=== PATIENT | male | born 1965 | race Caucasian/White ===

== ENCOUNTER 2016-09-13 13:10 | Inpatient (IN) | payer OTHER ==
[2016-09-13] MEDS ORDERED: MENTHOL/PHENOL 1 EACH UD MM PRN (16:06)
[2016-09-13] MEDS ORDERED: P-EPHED 60MG/TRIPROLIDI 2.5MG TABLET PO PRN (16:06)
[2016-09-13] MEDS ORDERED: MAG HYDROX/AL HYDROX/SIMETH 30 ML UNIT-DOSE CUP PO PRN (16:06)
[2016-09-13] MEDS ORDERED: MAGNESIUM HYDROX 2400MG/30ML ORAL SUSPENSION 30 ML CUP PO PRN (16:06)
[2016-09-13] MEDS ORDERED: guaiFENesin/D-METHORPHAN HB 10 ML UNIT-DOSE CUPS PO PRN (16:06)
[2016-09-13] MEDS ORDERED: IBUPROFEN 400 MG TABLET (FP) PO PRN (16:06)
[2016-09-13] MEDS ORDERED: MAGNESIUM CITRATE 300 ML BOTTLE PO PRN (16:06)
--- NOTE | 2016-09-13 16:06 | HP ---
[facility] Rehab Assess/Revision - Admission History Admitted to Rehab from: [facility] Date of Admission to Rehab: 09/13/16 - Vital signs Vital Signs: Vital Signs Period Temp Pulse Resp BP Sys/Montilla Pulse Ox Last 24 Hr 99.3 F 101 16 136/76 - Findings Detox History & Physical reviewed: Yes Concur with findings: Yes
[2016-09-13] MEDS: traZODone HCL 50 MG TABLET (FP) PO SCH (21:47)
[2016-09-13] MEDS: THIAMINE HCL 100 MG TABLET (FP) PO SCH (21:47)
[2016-09-14] MEDS: PRENATAL VITAMINS W/ FOLIC ACID TABLET (FP) PO SCH (09:44)
[2016-09-14] MEDS: LOPERAMIDE HCL 2 MG CAPSULE PO PRN (09:44)
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
[2016-09-14] MEDS: traZODone HCL 50 MG TABLET (FP) PO SCH (21:34)
[2016-09-14] MEDS: THIAMINE HCL 100 MG TABLET (FP) PO SCH (21:35)
[2016-09-15] MEDS: PRENATAL VITAMINS W/ FOLIC ACID TABLET (FP) PO SCH (09:47)
[2016-09-15] MEDS ORDERED: SODIUM CHLORIDE NASAL SPRAY 44 ML BOTTLE NS PRN (12:48)
[2016-09-15] MEDS: COLLOIDAL OATMEAL 1 BAR EACH TP PRN (18:45)
[2016-09-15] MEDS: THIAMINE HCL 100 MG TABLET (FP) PO SCH (21:23)
[2016-09-15] MEDS: LOPERAMIDE HCL 2 MG CAPSULE PO PRN (21:24)
[2016-09-15] MEDS: traZODone HCL 50 MG TABLET (FP) PO SCH (21:24)
[2016-09-15] MEDS: METHYL SALICYLATE/MENTHOL OINT 30 GM TUBE TP SCH (21:24)
[2016-09-15] MEDS: IBUPROFEN 600 MG TABLET (FP) PO PRN (21:25)
[2016-09-16] MEDS: METHYL SALICYLATE/MENTHOL OINT 30 GM TUBE TP SCH ×2 (09:37→21:25)
[2016-09-16] MEDS: PRENATAL VITAMINS W/ FOLIC ACID TABLET (FP) PO SCH (09:37)
[2016-09-16] MEDS: IBUPROFEN 600 MG TABLET (FP) PO PRN ×2 (09:38→21:25)
[2016-09-16] MEDS: traZODone HCL 50 MG TABLET (FP) PO SCH (21:25)
[2016-09-16] MEDS: THIAMINE HCL 100 MG TABLET (FP) PO SCH (21:25)
[2016-09-16] MEDS: DOCUSATE SODIUM 100 MG CAPSULE (FP) PO PRN (21:52)
[2016-09-17] MEDS: PRENATAL VITAMINS W/ FOLIC ACID TABLET (FP) PO SCH (09:44)
[2016-09-17] MEDS: IBUPROFEN 600 MG TABLET (FP) PO PRN ×2 (09:45→21:32)
[2016-09-17] MEDS: METHYL SALICYLATE/MENTHOL OINT 30 GM TUBE TP SCH ×2 (13:03→21:30)
[2016-09-17] MEDS: traZODone HCL 50 MG TABLET (FP) PO SCH (21:30)
[2016-09-17] MEDS: THIAMINE HCL 100 MG TABLET (FP) PO SCH (21:30)
[2016-09-17] MEDS: DOCUSATE SODIUM 100 MG CAPSULE (FP) PO PRN (21:32)
[2016-09-18] MEDS: PRENATAL VITAMINS W/ FOLIC ACID TABLET (FP) PO SCH (09:33)
[2016-09-18] MEDS: METHYL SALICYLATE/MENTHOL OINT 30 GM TUBE TP SCH ×2 (09:33→21:26)
[2016-09-18] MEDS: IBUPROFEN 600 MG TABLET (FP) PO PRN ×2 (09:35→21:27)
[2016-09-18] MEDS: THIAMINE HCL 100 MG TABLET (FP) PO SCH (21:26)
[2016-09-18] MEDS: traZODone HCL 50 MG TABLET (FP) PO SCH (21:26)
[2016-09-18] MEDS: DOCUSATE SODIUM 100 MG CAPSULE (FP) PO PRN (21:28)
[2016-09-19] MEDS: PRENATAL VITAMINS W/ FOLIC ACID TABLET (FP) PO SCH (09:29)
[2016-09-19] MEDS: METHYL SALICYLATE/MENTHOL OINT 30 GM TUBE TP SCH ×2 (09:30→21:34)
[2016-09-19] MEDS: IBUPROFEN 600 MG TABLET (FP) PO PRN ×2 (09:30→21:36)
[2016-09-19] MEDS: THIAMINE HCL 100 MG TABLET (FP) PO SCH (21:35)
[2016-09-19] MEDS: traZODone HCL 50 MG TABLET (FP) PO SCH (21:35)
[2016-09-20] MEDS: IBUPROFEN 600 MG TABLET (FP) PO PRN ×3 (06:34→21:11)
[2016-09-20] MEDS: METHYL SALICYLATE/MENTHOL OINT 30 GM TUBE TP SCH ×2 (09:43→21:11)
[2016-09-20] MEDS: PRENATAL VITAMINS W/ FOLIC ACID TABLET (FP) PO SCH (09:43)
[2016-09-20] MEDS: THIAMINE HCL 100 MG TABLET (FP) PO SCH (21:10)
[2016-09-20] MEDS: traZODone HCL 50 MG TABLET (FP) PO SCH (21:10)
[2016-09-21] MEDS: IBUPROFEN 600 MG TABLET (FP) PO PRN ×2 (06:07→21:28)
[2016-09-21] MEDS: METHYL SALICYLATE/MENTHOL OINT 30 GM TUBE TP SCH ×2 (09:53→21:27)
[2016-09-21] MEDS: PRENATAL VITAMINS W/ FOLIC ACID TABLET (FP) PO SCH (09:53)
[2016-09-21] MEDS: THIAMINE HCL 100 MG TABLET (FP) PO SCH (21:26)
[2016-09-21] MEDS: traZODone HCL 50 MG TABLET (FP) PO SCH (21:27)
[2016-09-22] MEDS: IBUPROFEN 600 MG TABLET (FP) PO PRN ×2 (05:55→14:30)
--- NOTE | 2016-09-22 10:07 | PN ---
S Progress Note Note: 51 y/o m pt with a h/o ? sz, brain stem tumor , h/o chronic alcoholism and ptsd . pt reports allergy to dilantin and states pete does'nt work. who is having jerky movements , stiffness of upper and lower extremities , but no loc or post ictal episode . Pt has not been on anti-convulasant meds . bp 155/88, p 88/m, r 16/m, t afebrile , bgm 88, imp- ? sz ptsd s/p brain stem tumor chronic alcoholism -detoxed plan - further evaluation in ED pt signed out to ED-Emma Graham MD. [facility] amb[facility] notified
--- NOTE | 2016-09-22 10:26 | PN ---
[facility] Progress Note Note: pt aox3 in nad w/o deficits -refusing to go to ED . ED evaluation cancelled .
[2016-09-22] MEDS: PRENATAL VITAMINS W/ FOLIC ACID TABLET (FP) PO SCH (10:56)
[2016-09-22] MEDS: METHYL SALICYLATE/MENTHOL OINT 30 GM TUBE TP SCH ×2 (10:56→21:52)
[2016-09-22] MEDS: THIAMINE HCL 100 MG TABLET (FP) PO SCH (21:52)
[2016-09-22] MEDS: traZODone HCL 50 MG TABLET (FP) PO SCH (21:52)
[2016-09-23] MEDS: IBUPROFEN 600 MG TABLET (FP) PO PRN ×3 (06:43→23:35)
[2016-09-23] MEDS: PRENATAL VITAMINS W/ FOLIC ACID TABLET (FP) PO SCH (09:39)
[2016-09-23] MEDS: METHYL SALICYLATE/MENTHOL OINT 30 GM TUBE TP SCH ×2 (09:39→21:36)
[2016-09-23] MEDS: THIAMINE HCL 100 MG TABLET (FP) PO SCH (21:35)
[2016-09-23] MEDS: traZODone HCL 50 MG TABLET (FP) PO SCH (21:35)
[2016-09-24] MEDS: PRENATAL VITAMINS W/ FOLIC ACID TABLET (FP) PO SCH (09:53)
[2016-09-24] MEDS: METHYL SALICYLATE/MENTHOL OINT 30 GM TUBE TP SCH ×2 (09:53→22:05)
[2016-09-24] MEDS: IBUPROFEN 600 MG TABLET (FP) PO PRN ×2 (09:54→22:04)
[2016-09-24] MEDS: traZODone HCL 50 MG TABLET (FP) PO SCH (22:03)
[2016-09-24] MEDS: THIAMINE HCL 100 MG TABLET (FP) PO SCH (22:05)
[2016-09-25] MEDS: IBUPROFEN 600 MG TABLET (FP) PO PRN ×2 (06:06→17:07)
[2016-09-25] MEDS: METHYL SALICYLATE/MENTHOL OINT 30 GM TUBE TP SCH ×2 (09:35→21:36)
[2016-09-25] MEDS: PRENATAL VITAMINS W/ FOLIC ACID TABLET (FP) PO SCH (09:35)
[2016-09-25] MEDS: THIAMINE HCL 100 MG TABLET (FP) PO SCH (21:35)
[2016-09-25] MEDS: traZODone HCL 50 MG TABLET (FP) PO SCH (21:36)
[2016-09-26] MEDS: IBUPROFEN 600 MG TABLET (FP) PO PRN ×3 (01:03→17:13)
[2016-09-26] MEDS: PRENATAL VITAMINS W/ FOLIC ACID TABLET (FP) PO SCH (09:41)
[2016-09-26] MEDS: METHYL SALICYLATE/MENTHOL OINT 30 GM TUBE TP SCH ×2 (09:42→21:46)
[2016-09-26] MEDS: traZODone HCL 50 MG TABLET (FP) PO SCH (21:44)
[2016-09-26] MEDS: THIAMINE HCL 100 MG TABLET (FP) PO SCH (21:45)
[2016-09-27] MEDS: IBUPROFEN 600 MG TABLET (FP) PO PRN ×3 (00:51→21:45)
[2016-09-27] MEDS: PRENATAL VITAMINS W/ FOLIC ACID TABLET (FP) PO SCH (09:24)
[2016-09-27] MEDS: METHYL SALICYLATE/MENTHOL OINT 30 GM TUBE TP SCH ×2 (09:25→21:43)
[2016-09-27] MEDS: THIAMINE HCL 100 MG TABLET (FP) PO SCH (21:43)
[2016-09-27] MEDS: traZODone HCL 50 MG TABLET (FP) PO SCH (21:43)
[2016-09-27] MEDS: diphenhydrAMINE HCL 50 MG CAPSULE PO PRN (21:44)
[2016-09-28] MEDS: PRENATAL VITAMINS W/ FOLIC ACID TABLET (FP) PO SCH (09:26)
[2016-09-28] MEDS: IBUPROFEN 600 MG TABLET (FP) PO PRN ×2 (09:27→21:59)
[2016-09-28] MEDS: METHYL SALICYLATE/MENTHOL OINT 30 GM TUBE TP SCH ×2 (09:28→21:58)
[2016-09-28] MEDS: traZODone HCL 50 MG TABLET (FP) PO SCH (21:59)
[2016-09-28] MEDS: diphenhydrAMINE HCL 50 MG CAPSULE PO PRN (22:00)
[2016-09-28] MEDS: THIAMINE HCL 100 MG TABLET (FP) PO SCH (22:00)
[2016-09-29] MEDS: IBUPROFEN 600 MG TABLET (FP) PO PRN ×2 (06:24→21:56)
[2016-09-29] MEDS: METHYL SALICYLATE/MENTHOL OINT 30 GM TUBE TP SCH ×2 (09:28→21:55)
[2016-09-29] MEDS: PRENATAL VITAMINS W/ FOLIC ACID TABLET (FP) PO SCH (09:28)
[2016-09-29] MEDS: THIAMINE HCL 100 MG TABLET (FP) PO SCH (21:54)
[2016-09-29] MEDS: diphenhydrAMINE HCL 50 MG CAPSULE PO PRN (21:54)
[2016-09-29] MEDS: traZODone HCL 50 MG TABLET (FP) PO SCH (21:55)
[2016-09-30] MEDS: IBUPROFEN 600 MG TABLET (FP) PO PRN ×2 (06:46→14:20)
[2016-09-30] MEDS: PRENATAL VITAMINS W/ FOLIC ACID TABLET (FP) PO SCH (09:43)
[2016-09-30] MEDS: METHYL SALICYLATE/MENTHOL OINT 30 GM TUBE TP SCH ×2 (09:44→21:46)
[2016-09-30] MEDS: COLLOIDAL OATMEAL 1 BAR EACH TP PRN (09:45)
[2016-09-30] MEDS: diphenhydrAMINE HCL 50 MG CAPSULE PO PRN (21:45)
[2016-09-30] MEDS: traZODone HCL 50 MG TABLET (FP) PO SCH (21:45)
[2016-09-30] MEDS: THIAMINE HCL 100 MG TABLET (FP) PO SCH (21:45)
[2016-09-30] MEDS: CARBAMIDE PEROXIDE 6.5% OTIC 15 ML BOTTLE AU SCH (21:46)
[2016-10-01] MEDS: IBUPROFEN 600 MG TABLET (FP) PO PRN ×3 (01:53→21:58)
[2016-10-01] MEDS: diphenhydrAMINE HCL 50 MG CAPSULE PO PRN ×2 (01:54→21:59)
[2016-10-01] MEDS: PRENATAL VITAMINS W/ FOLIC ACID TABLET (FP) PO SCH (10:06)
[2016-10-01] MEDS: METHYL SALICYLATE/MENTHOL OINT 30 GM TUBE TP SCH ×2 (10:06→21:57)
[2016-10-01] MEDS: CARBAMIDE PEROXIDE 6.5% OTIC 15 ML BOTTLE AU SCH ×2 (10:06→21:58)
[2016-10-01] MEDS: traZODone HCL 50 MG TABLET (FP) PO SCH (21:56)
[2016-10-01] MEDS: THIAMINE HCL 100 MG TABLET (FP) PO SCH (21:57)
[2016-10-02] MEDS: IBUPROFEN 600 MG TABLET (FP) PO PRN ×3 (06:46→22:03)
[2016-10-02] MEDS: CARBAMIDE PEROXIDE 6.5% OTIC 15 ML BOTTLE AU SCH ×2 (09:30→22:04)
[2016-10-02] MEDS: METHYL SALICYLATE/MENTHOL OINT 30 GM TUBE TP SCH ×2 (09:30→22:01)
[2016-10-02] MEDS: PRENATAL VITAMINS W/ FOLIC ACID TABLET (FP) PO SCH (09:30)
[2016-10-02] MEDS: traZODone HCL 50 MG TABLET (FP) PO SCH (22:03)
[2016-10-02] MEDS: diphenhydrAMINE HCL 50 MG CAPSULE PO PRN (22:05)
[2016-10-02] MEDS: THIAMINE HCL 100 MG TABLET (FP) PO SCH (22:42)
[2016-10-03] MEDS: IBUPROFEN 600 MG TABLET (FP) PO PRN ×2 (06:04→22:00)
[2016-10-03] MEDS: CARBAMIDE PEROXIDE 6.5% OTIC 15 ML BOTTLE AU SCH ×2 (09:33→22:03)
[2016-10-03] MEDS: PRENATAL VITAMINS W/ FOLIC ACID TABLET (FP) PO SCH (09:33)
[2016-10-03] MEDS: METHYL SALICYLATE/MENTHOL OINT 30 GM TUBE TP SCH ×2 (09:33→22:03)
[2016-10-03] MEDS: THIAMINE HCL 100 MG TABLET (FP) PO SCH (21:59)
[2016-10-03] MEDS: traZODone HCL 50 MG TABLET (FP) PO SCH (21:59)
[2016-10-03] MEDS: diphenhydrAMINE HCL 50 MG CAPSULE PO PRN (21:59)
[2016-10-04] MEDS: PRENATAL VITAMINS W/ FOLIC ACID TABLET (FP) PO SCH (09:52)
[2016-10-04] MEDS: METHYL SALICYLATE/MENTHOL OINT 30 GM TUBE TP SCH ×2 (09:52→21:55)
[2016-10-04] MEDS: CARBAMIDE PEROXIDE 6.5% OTIC 15 ML BOTTLE AU SCH ×2 (09:53→21:56)
[2016-10-04] MEDS: IBUPROFEN 400 MG TABLET (FP) PO PRN (17:27)
[2016-10-04] MEDS: THIAMINE HCL 100 MG TABLET (FP) PO SCH (21:55)
[2016-10-04] MEDS: traZODone HCL 50 MG TABLET (FP) PO SCH (21:55)
[2016-10-04] MEDS: diphenhydrAMINE HCL 50 MG CAPSULE PO PRN (21:56)
[2016-10-05] MEDS: IBUPROFEN 400 MG TABLET (FP) PO PRN ×3 (06:50→23:27)
[2016-10-05] MEDS: PRENATAL VITAMINS W/ FOLIC ACID TABLET (FP) PO SCH (09:35)
[2016-10-05] MEDS: METHYL SALICYLATE/MENTHOL OINT 30 GM TUBE TP SCH ×2 (09:35→21:58)
[2016-10-05] MEDS: CARBAMIDE PEROXIDE 6.5% OTIC 15 ML BOTTLE AU SCH ×2 (09:36→21:58)
[2016-10-05] MEDS: THIAMINE HCL 100 MG TABLET (FP) PO SCH (21:56)
[2016-10-05] MEDS: traZODone HCL 50 MG TABLET (FP) PO SCH (21:56)
[2016-10-05] MEDS: diphenhydrAMINE HCL 50 MG CAPSULE PO PRN (21:56)
[2016-10-06] MEDS: IBUPROFEN 400 MG TABLET (FP) PO PRN ×3 (06:25→21:47)
[2016-10-06] MEDS: METHYL SALICYLATE/MENTHOL OINT 30 GM TUBE TP SCH ×2 (09:37→21:47)
[2016-10-06] MEDS: CARBAMIDE PEROXIDE 6.5% OTIC 15 ML BOTTLE AU SCH ×2 (09:37→21:47)
[2016-10-06] MEDS: PRENATAL VITAMINS W/ FOLIC ACID TABLET (FP) PO SCH (09:37)
[2016-10-06] MEDS: THIAMINE HCL 100 MG TABLET (FP) PO SCH (21:47)
[2016-10-06] MEDS: traZODone HCL 50 MG TABLET (FP) PO SCH (21:47)
[2016-10-06] MEDS: diphenhydrAMINE HCL 50 MG CAPSULE PO PRN (21:47)
[2016-10-07] MEDS: IBUPROFEN 400 MG TABLET (FP) PO PRN ×3 (06:54→23:17)
[2016-10-07] MEDS: METHYL SALICYLATE/MENTHOL OINT 30 GM TUBE TP SCH ×2 (09:48→21:46)
[2016-10-07] MEDS: PRENATAL VITAMINS W/ FOLIC ACID TABLET (FP) PO SCH (09:48)
[2016-10-07] MEDS: CARBAMIDE PEROXIDE 6.5% OTIC 15 ML BOTTLE AU SCH ×2 (09:48→21:46)
[2016-10-07] MEDS: THIAMINE HCL 100 MG TABLET (FP) PO SCH (21:45)
[2016-10-07] MEDS: traZODone HCL 50 MG TABLET (FP) PO SCH (21:46)
[2016-10-07] MEDS: diphenhydrAMINE HCL 50 MG CAPSULE PO PRN (23:19)
[2016-10-08] MEDS: IBUPROFEN 400 MG TABLET (FP) PO PRN ×3 (06:04→22:41)
[2016-10-08] MEDS: METHYL SALICYLATE/MENTHOL OINT 30 GM TUBE TP SCH ×2 (09:42→21:55)
[2016-10-08] MEDS: PRENATAL VITAMINS W/ FOLIC ACID TABLET (FP) PO SCH (09:42)
[2016-10-08] MEDS: CARBAMIDE PEROXIDE 6.5% OTIC 15 ML BOTTLE AU SCH ×2 (09:42→21:54)
[2016-10-08] MEDS: THIAMINE HCL 100 MG TABLET (FP) PO SCH (21:53)
[2016-10-08] MEDS: traZODone HCL 50 MG TABLET (FP) PO SCH (21:54)
[2016-10-08] MEDS: diphenhydrAMINE HCL 50 MG CAPSULE PO PRN (21:54)
[2016-10-09] MEDS: IBUPROFEN 400 MG TABLET (FP) PO PRN ×2 (06:20→21:37)
[2016-10-09] MEDS: CARBAMIDE PEROXIDE 6.5% OTIC 15 ML BOTTLE AU SCH ×3 (09:26→22:03)
[2016-10-09] MEDS: PRENATAL VITAMINS W/ FOLIC ACID TABLET (FP) PO SCH (09:26)
[2016-10-09] MEDS: METHYL SALICYLATE/MENTHOL OINT 30 GM TUBE TP SCH ×2 (09:26→21:38)
[2016-10-09] MEDS: THIAMINE HCL 100 MG TABLET (FP) PO SCH (21:36)
[2016-10-09] MEDS: traZODone HCL 50 MG TABLET (FP) PO SCH (21:36)
[2016-10-09] MEDS: diphenhydrAMINE HCL 50 MG CAPSULE PO PRN (22:35)
[2016-10-10] MEDS: IBUPROFEN 400 MG TABLET (FP) PO PRN ×2 (06:18→16:45)
[2016-10-10] MEDS: METHYL SALICYLATE/MENTHOL OINT 30 GM TUBE TP SCH ×2 (09:23→21:37)
[2016-10-10] MEDS: PRENATAL VITAMINS W/ FOLIC ACID TABLET (FP) PO SCH (09:23)
[2016-10-10] MEDS: CARBAMIDE PEROXIDE 6.5% OTIC 15 ML BOTTLE AU SCH ×2 (09:24→21:37)
[2016-10-10] MEDS: THIAMINE HCL 100 MG TABLET (FP) PO SCH (21:36)
[2016-10-10] MEDS: traZODone HCL 50 MG TABLET (FP) PO SCH (21:36)
[2016-10-10] MEDS: ACETAMINOPHEN 325 MG TABLET (FP) PO PRN (21:39)
[2016-10-11] MEDS: IBUPROFEN 400 MG TABLET (FP) PO PRN ×3 (01:05→21:39)
[2016-10-11] MEDS: diphenhydrAMINE HCL 50 MG CAPSULE PO PRN ×2 (01:06→22:38)
[2016-10-11] MEDS: PRENATAL VITAMINS W/ FOLIC ACID TABLET (FP) PO SCH (09:39)
[2016-10-11] MEDS: METHYL SALICYLATE/MENTHOL OINT 30 GM TUBE TP SCH ×2 (09:40→21:41)
[2016-10-11] MEDS: CARBAMIDE PEROXIDE 6.5% OTIC 15 ML BOTTLE AU SCH ×2 (09:41→21:38)
[2016-10-11] MEDS: ACETAMINOPHEN 325 MG TABLET (FP) PO PRN (14:20)
[2016-10-11] MEDS: THIAMINE HCL 100 MG TABLET (FP) PO SCH (21:38)
[2016-10-11] MEDS: traZODone HCL 50 MG TABLET (FP) PO SCH (21:39)
[2016-10-12] MEDS: ACETAMINOPHEN 325 MG TABLET (FP) PO PRN (06:28)
[2016-10-12 06:54] VITALS: PULSE 78
[2016-10-12] MEDS: IBUPROFEN 400 MG TABLET (FP) PO PRN ×2 (09:22→21:52)
[2016-10-12] MEDS: CARBAMIDE PEROXIDE 6.5% OTIC 15 ML BOTTLE AU SCH ×2 (09:22→21:50)
[2016-10-12] MEDS: PRENATAL VITAMINS W/ FOLIC ACID TABLET (FP) PO SCH (09:22)
[2016-10-12] MEDS: METHYL SALICYLATE/MENTHOL OINT 30 GM TUBE TP SCH ×2 (09:22→21:51)
[2016-10-12] MEDS: traZODone HCL 50 MG TABLET (FP) PO SCH (21:51)
[2016-10-12] MEDS: THIAMINE HCL 100 MG TABLET (FP) PO SCH (21:51)
[2016-10-12] MEDS: diphenhydrAMINE HCL 50 MG CAPSULE PO PRN (22:47)
[2016-10-13] MEDS: ACETAMINOPHEN 325 MG TABLET (FP) PO PRN (06:39)
[2016-10-13 06:49] VITALS: BP 124/82; TEMP 97.7
[2016-10-13] MEDS: CARBAMIDE PEROXIDE 6.5% OTIC 15 ML BOTTLE AU SCH (09:54)
[2016-10-13] MEDS: PRENATAL VITAMINS W/ FOLIC ACID TABLET (FP) PO SCH (09:54)
[2016-10-13] MEDS: METHYL SALICYLATE/MENTHOL OINT 30 GM TUBE TP SCH (09:54)
--- NOTE | 2016-10-13 10:18 | PN ---
Psychiatric Progress Note Vital Signs: Vital Signs Period Temp Pulse Resp BP Sys/Montilla Pulse Ox Last 24 Hr 97.7 F 78 18-18 124/82 Date of Session: 10/13/16 Chief Complaint:: discharge visit HPI: Patient has addressed alcohol dependence cannabis abuse comorbid MDD and PTSD. ROS: WNL Current Medications: Active Medications Generic Name Dose Route Start Last Admin Trade Name Freq PRN Reason Stop Dose Admin Acetaminophen 650 mg 09/13/16 16:06 10/13/16 06:39 Tylenol - PO 650 mg Q4H PRN Administration FEVER OR PAIN Al Hydroxide/Mg Hydroxide 30 ml 09/13/16 16:06 Mylanta Oral Suspension - PO Q6H PRN DYSPEPSIA Carbamide Perox/Anhydrous Glycerin 10 drop 09/30/16 22:00 10/13/16 09:54 Debrox - AU Not Given BID TAMAR Colloidal Oatmeal 1 applic 09/15/16 12:45 09/30/16 09:45 Aveeno Soap - TP 1 applic DAILY PRN Administration HYGEINE Diphenhydramine HCl 50 mg 09/13/16 16:06 10/12/16 22:47 Benadryl - PO 50 mg HSMR1 PRN Administration FOR ITCHING Docusate Sodium 300 mg 09/16/16 21:30 09/18/16 21:28 Colace - PO 300 mg HS PRN Administration CONSTIPATION Eucalyptus/Menthol/Phenol/Sorbitol 1 each 09/13/16 16:06 Cepastat Lozenge - MM Q4H PRN SORE THROAT Guaifenesin 10 ml 09/13/16 16:06 Robitussin Dm - PO Q6H PRN COUGH Ibuprofen 400 mg 10/04/16 07:01 10/12/16 21:52 Motrin - PO 400 mg Q8H PRN Administration PAIN OR FEVER Loperamide HCl 4 mg 09/13/16 16:06 09/15/16 21:24 Imodium - PO 4 mg Q6H PRN Administration DIARRHEA Magnesium Hydroxide 30 ml 09/13/16 16:06 Milk Of Magnesia - PO DAILY PRN CONSTIPATION Methyl Salicylate 1 applic 09/15/16 22:00 10/13/16 09:54 Santiago-Sears - TP Not Given BID TAMAR Multivit/Folic Acid/Iron 1 tab 09/14/16 10:00 10/13/16 09:54 Vitamins (Sjr) - PO 1 tab DAILY TAMAR Administration Pseudoephedrine/Triprolidine 1 combo 09/13/16 16:06 Actifed - PO TID PRN NASAL CONGESTION Sodium Chloride 2 spray 09/15/16 12:48 [place] Nasal [place] - NS TID PRN NASAL CONGESTION Thiamine HCl 100 mg 09/13/16 22:00 10/12/16 21:51 Vitamin B1 - PO 100 mg HS TAMAR Administration Trazodone HCl 100 mg 09/13/16 22:00 10/12/16 21:51 Desyrel - PO 100 mg HS TAMAR Administration Current Side Effect: No Lab tests ordered: No Lab tests reviewed: Yes Provider note:: Patient has completed today his treatment and met his goals will continue to address his issues at [facility] outpatient clinic, he focused on insights he gained in this treatment, verbalized understanding of importance chnging attitude for the utilization of supports available to prevent relapses Medication(trazodone) well tolerated, scripts provided, patient was encouraged to continue maintain abstinence. Patient is stable for discharge. Total face to face time:: 35 Mental Status Exam - Mental Status Exam Alert and Oriented to: Time, Place, Person Cognitive Function: Good Patient Appearance: Well Groomed Mood: Hopeful Affect: Appropriate, Mood Congruent Patient Behavior: Appropriate, Cooperative Speech Pattern: Clear, Appropriate Voice Loudness: Normal Thought Process: Intact, Goal Oriented Thought Disorder: Not Present Hallucinations: Denies Suicidal Ideation: Denies Homicidal Ideation: Denies Insight/Judgement: Fair Sleep: Fair Appetite: Good Muscle strength/Tone: Normal Gait/Station: Normal Psychiatric Treatment Plan - Problem List (1) MDD (major depressive disorder) Current Visit: Yes (2) Alcohol dependence Current Visit: Yes (3) Cannabis abuse Current Visit: Yes (4) PTSD (post-traumatic stress disorder) Current Visit: No
== END 2016-10-13 10:50 | disposition home or self-care (01) | DRG 772 ==
LOC: YASAS 13:10 → Y5N 13:11
PROVIDERS: ADMIT Psychiatry & Neurology Psychiatry; ATTEND Psychiatry & Neurology Psychiatry
PROC: HZ42ZZZ Group Counseling for Substance Abuse Treatment, Cognitive-Behavioral (ICD-10-PCS; principal; 2016-09-13)
DX: F10.20 Alcohol dependence, uncomplicated (principal); F12.10 Cannabis abuse, uncomplicated; F33.9 Major depressive disorder, recurrent, unspecified; F43.10 Post-traumatic stress disorder, unspecified; G40.909 Epilepsy, unspecified, not intractable, without status epilepticus; M12.9 Arthropathy, unspecified; Z87.19 Personal history of other diseases of the digestive system; Z86.69 Personal history of other diseases of the nervous system and sense organs; Z85.841 Personal history of malignant neoplasm of brain
CPT/HCPCS: 36415; 86803

== ENCOUNTER 2017-11-24 13:55 | Inpatient (IN) | payer OTHER ==
[2017-11-24 14:29] VITALS: BMI 28.3
[2017-11-24] MEDS ORDERED: guaiFENesin/D-METHORPHAN HB 10 ML UNIT-DOSE CUPS PO PRN (18:08)
[2017-11-24] MEDS ORDERED: MENTHOL/PHENOL 1 EACH UD MM PRN (18:08)
[2017-11-24] MEDS ORDERED: MAG HYDROX/AL HYDROX/SIMETH 30 ML UNIT-DOSE CUP PO PRN (18:08)
[2017-11-24] MEDS ORDERED: MAGNESIUM HYDROX 2400MG/30ML ORAL SUSPENSION 30 ML CUP PO PRN (18:08)
[2017-11-24] MEDS ORDERED: IBUPROFEN 400 MG TABLET (FP) PO PRN (18:08)
[2017-11-24] MEDS ORDERED: P-EPHED 60MG/TRIPROLIDI 2.5MG TABLET PO PRN (18:08)
[2017-11-24] MEDS ORDERED: LOPERAMIDE HCL 2 MG CAPSULE PO PRN (18:08)
[2017-11-24] MEDS ORDERED: hydrOXYzine PAMOATE 50 MG CAPSULE (FP) PO PRN (18:08)
[2017-11-24] MEDS ORDERED: chlordiazePOXIDE HCL 25 MG CAPSULE PO PRN (18:08)
[2017-11-24] MEDS ORDERED: MAGNESIUM CITRATE 300 ML BOTTLE PO PRN (18:08)
[2017-11-24] MEDS ORDERED: ACETAMINOPHEN 325 MG TABLET (FP) PO PRN (18:08)
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
[2017-11-24] MEDS ORDERED: chlordiazePOXIDE HCL 25 MG CAPSULE PO ONE (18:45)
[2017-11-24] MEDS: chlordiazePOXIDE HCL 25 MG CAPSULE PO SCH (22:24)
[2017-11-24] MEDS: THIAMINE HCL 100 MG TABLET (FP) PO SCH (22:25)
[2017-11-24] MEDS: NAPROXEN 375 MG TABLET (FP) PO SCH (22:26)
[2017-11-24 23:37] LABS: URINE APPEARANCE CLEAR; URINE BILIRUBIN NEGATIVE (NEGATIVE); URINE BLOOD NEGATIVE (NEGATIVE); URINE COLOR YELLOW; URINE GLUCOSE (UA) NEGATIVE (NEGATIVE); URINE KETONE 2+ (NEGATIVE); URINE LEUK ESTERASE NEGATIVE (NEGATIVE); URINE NITRITE NEGATIVE (NEGATIVE); URINE PROTEIN NEGATIVE (NEGATIVE); URINE UROBILINOGEN 4.0 E.U/dl mg/dL (0.2-1.0)
[2017-11-25] MEDS: chlordiazePOXIDE HCL 25 MG CAPSULE PO SCH ×4 (05:25→22:29)
--- NOTE | 2017-11-25 08:30 | PN ---
S CIWA - CIWA Score Nausea/Vomitin-No Nausea/No Vomiting Muscle Tremors: 4-Moderate,w/Arms Extend Anxiety: 4-Mod. Anxious/Guarded Agitation: 4-Moderately Restless Paroxysmal Sweats: 1-Minimal Palms Moist Orientation: 0-Oriented Tacttile Disturbances: 0-None Auditory Disturbances: 0-None Visual Disturbances: 0-None Headache: 0-None Present CIWA-Ar Total Score: 13 [facility] Progress Note (SOAP) Subjective: sweat tremor anxiety restlessness irritable Objective: 11/25/17 08:30 Vital Signs Temperature 97.7 F 11/25/17 06:00 Pulse Rate 79 11/25/17 06:00 Respiratory Rate 20 11/25/17 06:00 Blood Pressure 131/88 11/25/17 06:00 O2 Sat by Pulse Oximetry (%) Laboratory Last Values Urine Color Yellow 11/24/17 20:00 Urine Appearance Clear 11/24/17 20:00 Urine pH 7.0 (5.0-8.0) D 11/24/17 20:00 Ur Specific [place] 1.018 (1.001-1.035) 11/24/17 20:00 Urine Protein Negative (NEGATIVE) 11/24/17 20:00 Urine Glucose (UA) Negative (NEGATIVE) 11/24/17 20:00 Urine Ketones 2+ (NEGATIVE) H 11/24/17 20:00 Urine Blood Negative (NEGATIVE) 11/24/17 20:00 Urine Nitrite Negative (NEGATIVE) 11/24/17 20:00 Urine Bilirubin Negative (NEGATIVE) 11/24/17 20:00 Urine Urobilinogen 4.0 e.u/dl mg/dL (0.2-1.0) 11/24/17 20:00 Ur Leukocyte Esterase Negative (NEGATIVE) 11/24/17 20:00 lab noted Assessment: 11/25/17 08:30 withdrawal sx Plan: continue detox
[2017-11-25] MEDS ORDERED: NALTREXONE HCL 50 MG PO SCH (10:00)
[2017-11-25] MEDS: NAPROXEN 375 MG TABLET (FP) PO SCH ×2 (10:10→22:29)
[2017-11-25] MEDS: PRENATAL VITAMINS W/ FOLIC ACID TABLET (FP) PO SCH (10:11)
[2017-11-25 10:20] LABS: HEMATOCRIT 44.8 % (35.4-49); HEMOGLOBIN 15.6 GM/dL (11.7-16.9); MCH 34.7 pg (25.7-33.7); MCHC 34.9 g/dl (32.0-35.9); MEAN CELL VOLUME 99.3 fl (80-96); MEAN PLT VOLUME 7.3 fl (7.5-11.1); PLATELET COUNT 114 K/MM3 (134-434); RBC 4.51 M/mm3 (4.00-5.60); RDW 13.9 % (11.9-15.9); WHITE BLOOD COUNT 4.1 K/mm3 (4.0-10.0)
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
--- NOTE | 2017-11-25 11:44 | EKG ---
Test Reason : Blood Pressure : / mmHG Vent. Rate : 091 BPM Atrial Rate : 091 BPM P-R Int : 146 ms QRS Dur : 092 ms QT Int : 378 ms P-R-T Axes : 061 055 045 degrees QTc Int : 464 ms NORMAL SINUS RHYTHM NORMAL ECG WHEN COMPARED WITH ECG OF 11-SEP-2016 11:13, NO SIGNIFICANT CHANGE WAS FOUND Confirmed by SHENA YOUNGER MD ([id number]) on 11/25/2017 11:44:11 AM Referred By: Confirmed By:SHENA YOUNGER MD
[2017-11-25 12:21] LABS: ALBUMIN 4.3 g/dl (3.4-5.0); ALK PHOS 70 U/L (45-117); ANION GAP 9 (8-16); BILIRUBIN,TOTAL 1.3 mg/dL (0.2-1.0); BLOOD UREA NITROGEN 10 mg/dL (7-18); CALCIUM 8.6 mg/dL (8.5-10.1); CHLORIDE 100 mmol/L (98-107); CO2 32 mmol/L (21-32); CREATININE 0.9 mg/dL (0.7-1.3); GLUCOSE,RANDOM 92 mg/dL (74-106); POTASSIUM 3.4 mmol/L (3.5-5.1); SGOT/AST 31 U/L (15-37); SGPT/ALT 42 U/L (12-78); SODIUM 141 mmol/L (136-145)
[2017-11-25] MEDS: POTASSIUM CHLORIDE ORAL LIQUID 20 MEQ/15 ML PO SCH (22:29)
[2017-11-25] MEDS: traZODone HCL 50 MG TABLET (FP) PO SCH (22:29)
[2017-11-25] MEDS: THIAMINE HCL 100 MG TABLET (FP) PO SCH (22:29)
[2017-11-26] MEDS: chlordiazePOXIDE HCL 25 MG CAPSULE PO SCH ×3 (05:04→17:52)
[2017-11-26] MEDS: NAPROXEN 375 MG TABLET (FP) PO SCH ×2 (10:12→22:26)
[2017-11-26] MEDS: POTASSIUM CHLORIDE ORAL LIQUID 20 MEQ/15 ML PO SCH ×2 (10:12→22:26)
[2017-11-26] MEDS: PRENATAL VITAMINS W/ FOLIC ACID TABLET (FP) PO SCH (10:12)
--- NOTE | 2017-11-26 11:20 | PN ---
[facility] CIWA - CIWA Score Nausea/Vomitin-No Nausea/No Vomiting Muscle Tremors: 3 Anxiety: 3 Agitation: 3 Paroxysmal Sweats: 3 Orientation: 0-Oriented Tacttile Disturbances: 0-None Auditory Disturbances: 0-None Visual Disturbances: 0-None Headache: 0-None Present CIWA-Ar Total Score: 12 S Progress Note (SOAP) Subjective: interrupted sleep agitation sweats irritable Objective: 11/26/17 11:19 Vital Signs Temperature 97.5 F L 11/26/17 10:00 Pulse Rate 98 H 11/26/17 10:00 Respiratory Rate 20 11/26/17 10:00 Blood Pressure 116/73 11/26/17 10:00 O2 Sat by Pulse Oximetry (%) Laboratory Tests 11/24/17 11/25/17 11/25/17 20:00 07:00 07:00 WBC 4.1 RBC 4.51 Hgb 15.6 Hct 44.8 MCV 99.3 H MCH 34.7 H MCHC 34.9 RDW 13.9 Plt Count 114 L D MPV 7.3 L Sodium 141 Potassium 3.4 L Chloride 100 Carbon Dioxide 32 Anion Gap 9 BUN 10 Creatinine 0.9 D Creat Clearance w eGFR > 60 Random Glucose 92 Calcium 8.6 Total Bilirubin 1.3 H D AST 31 D ALT 42 D Alkaline Phosphatase 70 D Total Protein 7.0 Albumin 4.3 Urine Color Yellow Urine Appearance Clear Urine pH 7.0 D Ur Specific [place] 1.018 Urine Protein Negative Urine Glucose (UA) Negative Urine Ketones 2+ H Urine Blood Negative Urine Nitrite Negative Urine Bilirubin Negative Urine Urobilinogen 4.0 e.u/dl Ur Leukocyte Esterase Negative RPR Titer 11/25/17 07:00 WBC RBC Hgb Hct MCV MCH MCHC RDW Plt Count MPV Sodium Potassium Chloride Carbon Dioxide Anion Gap BUN Creatinine Creat Clearance w eGFR Random Glucose Calcium Total Bilirubin AST ALT Alkaline Phosphatase Total Protein Albumin Urine Color Urine Appearance Urine pH Ur Specific [place] Urine Protein Urine Glucose (UA) Urine Ketones Urine Blood Urine Nitrite Urine Bilirubin Urine Urobilinogen Ur Leukocyte Esterase RPR Titer Nonreactive aaox3 ambulating no acute distress Assessment: 11/26/17 11:19 withdrawal sx Plan: continue detox increase fluids
[2017-11-26] MEDS: THIAMINE HCL 100 MG TABLET (FP) PO SCH (22:26)
[2017-11-26] MEDS: chlordiazePOXIDE 5 MG CAPSULE PO SCH (22:27)
[2017-11-26] MEDS: traZODone HCL 50 MG TABLET (FP) PO SCH (22:27)
[2017-11-27] MEDS: chlordiazePOXIDE 5 MG CAPSULE PO SCH ×3 (05:39→17:03)
[2017-11-27] MEDS: NAPROXEN 375 MG TABLET (FP) PO SCH ×2 (10:12→22:17)
[2017-11-27] MEDS: POTASSIUM CHLORIDE ORAL LIQUID 20 MEQ/15 ML PO SCH (10:12)
[2017-11-27] MEDS: PRENATAL VITAMINS W/ FOLIC ACID TABLET (FP) PO SCH (10:12)
--- NOTE | 2017-11-27 13:50 | PN ---
S Progress Note (SOAP) Subjective: ALERT,INTERRUPTED SLEEP Objective: 11/27/17 13:48 Vital Signs Temperature 97.7 F 11/27/17 11:45 Pulse Rate 84 11/27/17 11:45 Respiratory Rate 16 11/27/17 11:45 Blood Pressure 130/75 11/27/17 11:45 O2 Sat by Pulse Oximetry (%) Assessment: 11/27/17 13:49 WITHDRAWAL SYMPTOM Plan: CONTINUE DETOX,DISCHARGE IN AM
[2017-11-27] MEDS: chlordiazePOXIDE HCL 10 MG CAPSULE PO SCH (22:17)
[2017-11-27] MEDS: traZODone HCL 50 MG TABLET (FP) PO SCH (22:17)
[2017-11-27] MEDS: THIAMINE HCL 100 MG TABLET (FP) PO SCH (22:17)
[2017-11-28] MEDS: chlordiazePOXIDE HCL 10 MG CAPSULE PO SCH ×2 (06:00→10:12)
--- NOTE | 2017-11-28 09:13 | DS ---
[facility] Detox Discharge Summary Admission Date: 11/24/17 Discharge Date: 11/28/17 - History Present History: Alcohol Dependence - Physical Exam Results Vital Signs: Vital Signs Temperature 97.7 F 11/28/17 08:06 Pulse Rate 73 11/28/17 08:06 Respiratory Rate 18 11/28/17 08:06 Blood Pressure 114/72 11/28/17 08:06 O2 Sat by Pulse Oximetry (%) Pertinent Admission Physical Exam Findings: withdrawal sx Laboratory Last Values WBC 4.1 K/mm3 (4.0-10.0) 11/25/17 07:00 RBC 4.51 M/mm3 (4.00-5.60) 11/25/17 07:00 Hgb 15.6 GM/dL (11.7-16.9) 11/25/17 07:00 Hct 44.8 % (35.4-49) 11/25/17 07:00 MCV 99.3 fl (80-96) H 11/25/17 07:00 MCH 34.7 pg (25.7-33.7) H 11/25/17 07:00 MCHC 34.9 g/dl (32.0-35.9) 11/25/17 07:00 RDW 13.9 % (11.9-15.9) 11/25/17 07:00 Plt Count 114 K/MM3 (134-434) L D 11/25/17 07:00 MPV 7.3 fl (7.5-11.1) L 11/25/17 07:00 Sodium 141 mmol/L (136-145) 11/25/17 07:00 Potassium 4.2 mmol/L (3.5-5.1) D 11/27/17 07:50 Chloride 100 mmol/L (98-107) 11/25/17 07:00 Carbon Dioxide 32 mmol/L (21-32) 11/25/17 07:00 Anion Gap 9 (8-16) 11/25/17 07:00 BUN 10 mg/dL (7-18) 11/25/17 07:00 Creatinine 0.9 mg/dL (0.7-1.3) D 11/25/17 07:00 Creat Clearance w eGFR > 60 (>60) 11/25/17 07:00 Random Glucose 92 mg/dL (74-106) 11/25/17 07:00 Calcium 8.6 mg/dL (8.5-10.1) 11/25/17 07:00 Total Bilirubin 1.3 mg/dL (0.2-1.0) H D 11/25/17 07:00 AST 31 U/L (15-37) D 11/25/17 07:00 ALT 42 U/L (12-78) D 11/25/17 07:00 Alkaline Phosphatase 70 U/L (45-117) D 11/25/17 07:00 Total Protein 7.0 g/dl (6.4-8.2) 11/25/17 07:00 Albumin 4.3 g/dl (3.4-5.0) 11/25/17 07:00 Urine Color Yellow 11/24/17 20:00 Urine Appearance Clear 11/24/17 20:00 Urine pH 7.0 (5.0-8.0) D 11/24/17 20:00 Ur Specific [place] 1.018 (1.001-1.035) 11/24/17 20:00 Urine Protein Negative (NEGATIVE) 11/24/17 20:00 Urine Glucose (UA) Negative (NEGATIVE) 11/24/17 20:00 Urine Ketones 2+ (NEGATIVE) H 11/24/17 20:00 Urine Blood Negative (NEGATIVE) 11/24/17 20:00 Urine Nitrite Negative (NEGATIVE) 11/24/17 20:00 Urine Bilirubin Negative (NEGATIVE) 11/24/17 20:00 Urine Urobilinogen 4.0 e.u/dl mg/dL (0.2-1.0) 11/24/17 20:00 Ur Leukocyte Esterase Negative (NEGATIVE) 11/24/17 20:00 RPR Titer Nonreactive (NONREACTIVE) 11/25/17 07:00 lab noted - Treatment Hospital Course: Detox Protocol Followed, Detoxed Safely, Responded well, Discharged Condition Good, Rehab Referral Accepted Patient has Accepted a Rehab Referral to: [facility] [place] - Medication Discharge Medications: Ambulatory Orders Naltrexone HCl 50 mg PO DAILY 11/24/17 Naproxen [Naprosyn -] 375 mg PO BID 11/24/17 - Diagnosis (1) Alcohol dependence with uncomplicated withdrawal Current Visit: Yes Status: Acute (2) Arthritis Current Visit: Yes Status: Chronic - AMA Did Patient Leave Against Medical Advice: No
[2017-11-28] MEDS: PRENATAL VITAMINS W/ FOLIC ACID TABLET (FP) PO SCH (10:11)
[2017-11-28] MEDS: NAPROXEN 375 MG TABLET (FP) PO SCH (10:11)
[2017-11-28 10:45] VITALS: BP 112/73; PULSE 89; TEMP 97.2
== END 2017-11-28 16:28 | disposition other institution (70) | DRG 775 ==
LOC: YASAS 13:55 → Y6N 17:03 → Y5N 11-28 13:27 → UNDODISIN 11-28 15:43
PROVIDERS: ADMIT Internal Medicine; ATTEND Internal Medicine
PROC: HZ2ZZZZ Detoxification Services for Substance Abuse Treatment (ICD-10-PCS; principal; 2017-11-24)
DX: F10.230 Alcohol dependence with withdrawal, uncomplicated (principal); F33.9 Major depressive disorder, recurrent, unspecified; F43.10 Post-traumatic stress disorder, unspecified; F41.8 Other specified anxiety disorders; M19.90 Unspecified osteoarthritis, unspecified site; D64.9 Anemia, unspecified; I10 Essential (primary) hypertension; D49.6 Neoplasm of unspecified behavior of brain; G40.909 Epilepsy, unspecified, not intractable, without status epilepticus; Z88.8 Allergy status to other drugs, medicaments and biological substances; Z91.5 Personal history of self-harm
CPT/HCPCS: 36415; 80053; 81003; 84132; 85027; 86593; 93005; 93010

== ENCOUNTER 2017-11-28 16:11 | Inpatient (IN) | payer OTHER ==
[2017-11-28] MEDS ORDERED: MENTHOL/PHENOL 1 EACH UD MM PRN (18:00)
[2017-11-28] MEDS ORDERED: IBUPROFEN 400 MG TABLET (FP) PO PRN (18:00)
[2017-11-28] MEDS ORDERED: MAG HYDROX/AL HYDROX/SIMETH 30 ML UNIT-DOSE CUP PO PRN (18:00)
[2017-11-28] MEDS ORDERED: MAGNESIUM HYDROX 2400MG/30ML ORAL SUSPENSION 30 ML CUP PO PRN (18:00)
[2017-11-28] MEDS ORDERED: ACETAMINOPHEN 325 MG TABLET (FP) PO PRN (18:00)
[2017-11-28] MEDS ORDERED: guaiFENesin/D-METHORPHAN HB 10 ML UNIT-DOSE CUPS PO PRN (18:00)
[2017-11-28] MEDS ORDERED: P-EPHED 60MG/TRIPROLIDI 2.5MG TABLET PO PRN (18:00)
[2017-11-28] MEDS ORDERED: MAGNESIUM CITRATE 300 ML BOTTLE PO PRN (18:00)
--- NOTE | 2017-11-28 18:00 | HP ---
[facility] Rehab Assess/Revision - Admission History Admitted to Rehab from: [facility] [place] Date of Admission to Rehab: 11/28/17 - Findings Detox History & Physical reviewed: Yes Concur with findings: Yes Comments/Additional Findings: [facility] Inpatient Rehab Admission - Initial Determination Are CD services needed?: Yes Free of communicable disease: Yes Not in need of hospitalization: Yes - Rehab Admission Criteria Previous failed treatment: Yes Poor recovery environment: Yes Comorbidities: Yes Lacks judgement: No Patient is meeting Inpatient Rehab admission criteria:: Yes
[2017-11-28] MEDS: THIAMINE HCL 100 MG TABLET (FP) PO SCH (21:47)
[2017-11-28] MEDS: traZODone HCL 50 MG TABLET (FP) PO SCH (21:47)
[2017-11-28] MEDS: NAPROXEN 375 MG TABLET (FP) PO SCH (22:18)
[2017-11-29] MEDS: NAPROXEN 375 MG TABLET (FP) PO SCH (10:26)
[2017-11-29] MEDS: PRENATAL VITAMINS W/ FOLIC ACID TABLET (FP) PO SCH (10:27)
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
--- NOTE | 2017-11-29 15:58 | PN ---
S Progress Note (SOAP) Subjective: Patient requested increase in dosage for Naproxen for low back pain and pain on both hip and lower extremities as per patient he has hx degenerative disc on his back. Objective: 11/29/17 15:55 Vital Signs Temperature 97.4 F L 11/29/17 07:14 Pulse Rate 69 11/29/17 07:14 Respiratory Rate 18 11/29/17 07:14 Blood Pressure 132/89 11/29/17 07:14 O2 Sat by Pulse Oximetry (%) Patient AOx3 in no parent distress Full ROM ambulating + for pain Lower and lower extremities Negative neuro symptoms Skin integrity intact Assessment: 11/29/17 15:57 Lumbago with sciatica Plan: Increase Naproxen to 500 BID Ambulate Increase fluids Continue to monitor
[2017-11-29] MEDS: NAPROXEN 500 MG TABLET (FP) PO SCH (21:43)
[2017-11-29] MEDS: traZODone HCL 50 MG TABLET (FP) PO SCH (21:43)
[2017-11-29] MEDS: THIAMINE HCL 100 MG TABLET (FP) PO SCH (21:43)
[2017-11-30] MEDS: PRENATAL VITAMINS W/ FOLIC ACID TABLET (FP) PO SCH (10:31)
[2017-11-30] MEDS: NAPROXEN 500 MG TABLET (FP) PO SCH ×2 (10:31→21:38)
[2017-11-30] MEDS: THIAMINE HCL 100 MG TABLET (FP) PO SCH (21:38)
[2017-11-30] MEDS: traZODone HCL 50 MG TABLET (FP) PO SCH (21:38)
[2017-12-01] MEDS: NAPROXEN 500 MG TABLET (FP) PO SCH ×2 (10:42→21:32)
[2017-12-01] MEDS: PRENATAL VITAMINS W/ FOLIC ACID TABLET (FP) PO SCH (10:42)
--- NOTE | 2017-12-01 11:49 | PN ---
[facility] Progress Note (SOAP) Subjective: c/o sharp stabbing back pain chronic low back pain sharp stabbing in nature not controlled by naproxen Objective: 12/01/17 11:48 Vital Signs - 24 hr 12/01/17 12/01/17 12/01/17 00:30 03:30 07:07 Temperature 98.0 F Pulse Rate 18 L Respiratory 18 18 18 Rate Blood Pressure 119/61 labs reveiwed Assessment: 12/01/17 11:48 chronic low back pain 2/2 arthritis, neuropathic start elavil 25mg qhs, neurontin, and flexeril titrte to effect patietn qware.
[2017-12-01] MEDS: CYCLOBENZAPRINE HCL 10 MG TABLET (FP) PO SCH ×2 (14:34→21:32)
[2017-12-01] MEDS: GABAPENTIN 100 MG CAPSULE (FP) PO SCH ×2 (14:34→21:32)
[2017-12-01] MEDS: traZODone HCL 50 MG TABLET (FP) PO SCH (21:32)
[2017-12-01] MEDS: THIAMINE HCL 100 MG TABLET (FP) PO SCH (21:32)
[2017-12-01] MEDS: AMITRIPTYLINE HCL 25 MG TABLET (FP) PO SCH (21:33)
[2017-12-02] MEDS: CYCLOBENZAPRINE HCL 10 MG TABLET (FP) PO SCH ×3 (06:15→21:37)
[2017-12-02] MEDS: GABAPENTIN 100 MG CAPSULE (FP) PO SCH ×3 (06:15→21:37)
[2017-12-02] MEDS: NAPROXEN 500 MG TABLET (FP) PO SCH ×2 (10:21→21:37)
[2017-12-02] MEDS: PRENATAL VITAMINS W/ FOLIC ACID TABLET (FP) PO SCH (10:21)
[2017-12-02] MEDS: AMITRIPTYLINE HCL 25 MG TABLET (FP) PO SCH (21:37)
[2017-12-02] MEDS: traZODone HCL 50 MG TABLET (FP) PO SCH (21:37)
[2017-12-02] MEDS: THIAMINE HCL 100 MG TABLET (FP) PO SCH (21:37)
[2017-12-03] MEDS: CYCLOBENZAPRINE HCL 10 MG TABLET (FP) PO SCH ×3 (06:19→21:35)
[2017-12-03] MEDS: GABAPENTIN 100 MG CAPSULE (FP) PO SCH ×3 (06:19→21:35)
[2017-12-03] MEDS: PRENATAL VITAMINS W/ FOLIC ACID TABLET (FP) PO SCH (10:31)
[2017-12-03] MEDS: NAPROXEN 500 MG TABLET (FP) PO SCH ×2 (10:31→21:35)
--- NOTE | 2017-12-03 17:16 | PN ---
S Progress Note Note: Patient complain of 8/10 sharp stabbing low back pain which is controlled with naproxen. Vital Signs Temperature 97.6 F 12/03/17 07:10 Pulse Rate 81 12/03/17 07:10 Respiratory Rate 18 12/03/17 07:10 Blood Pressure 116/82 12/03/17 07:10 O2 Sat by Pulse Oximetry (%) Patient Aox 3, in no aparent distress, ambulatory. Plan : Increase fluids Ambulate Continue flexeril and naproxen Lidocaine pact for back qd/ PRN
[2017-12-03] MEDS: LIDOCAINE 5% TOPICAL PATCH TP SCH (17:53)
[2017-12-03] MEDS: THIAMINE HCL 100 MG TABLET (FP) PO SCH (21:35)
[2017-12-03] MEDS: traZODone HCL 50 MG TABLET (FP) PO SCH (21:35)
[2017-12-03] MEDS: AMITRIPTYLINE HCL 25 MG TABLET (FP) PO SCH (21:35)
[2017-12-03] MEDS: LIDOCAINE PATCH REMOVAL MC SCH (21:36)
[2017-12-04] MEDS: CYCLOBENZAPRINE HCL 10 MG TABLET (FP) PO SCH ×3 (06:33→21:37)
[2017-12-04] MEDS: GABAPENTIN 100 MG CAPSULE (FP) PO SCH ×3 (06:33→21:36)
[2017-12-04] MEDS: NAPROXEN 500 MG TABLET (FP) PO SCH ×2 (10:03→21:36)
[2017-12-04] MEDS: PRENATAL VITAMINS W/ FOLIC ACID TABLET (FP) PO SCH (10:03)
[2017-12-04] MEDS: LIDOCAINE 5% TOPICAL PATCH TP SCH (10:03)
[2017-12-04] MEDS: THIAMINE HCL 100 MG TABLET (FP) PO SCH (21:36)
[2017-12-04] MEDS: traZODone HCL 50 MG TABLET (FP) PO SCH (21:37)
[2017-12-04] MEDS: AMITRIPTYLINE HCL 25 MG TABLET (FP) PO SCH (21:37)
[2017-12-04] MEDS: LIDOCAINE PATCH REMOVAL MC SCH (21:38)
[2017-12-05] MEDS: CYCLOBENZAPRINE HCL 10 MG TABLET (FP) PO SCH ×3 (06:41→21:35)
[2017-12-05] MEDS: GABAPENTIN 100 MG CAPSULE (FP) PO SCH ×3 (06:41→21:35)
[2017-12-05] MEDS: NAPROXEN 500 MG TABLET (FP) PO SCH ×2 (10:10→21:35)
[2017-12-05] MEDS: PRENATAL VITAMINS W/ FOLIC ACID TABLET (FP) PO SCH (10:10)
[2017-12-05] MEDS: LIDOCAINE 5% TOPICAL PATCH TP SCH (10:10)
[2017-12-05] MEDS: AMITRIPTYLINE HCL 25 MG TABLET (FP) PO SCH (21:35)
[2017-12-05] MEDS: THIAMINE HCL 100 MG TABLET (FP) PO SCH (21:35)
[2017-12-05] MEDS: traZODone HCL 50 MG TABLET (FP) PO SCH (21:35)
[2017-12-05] MEDS: LIDOCAINE PATCH REMOVAL MC SCH (21:36)
[2017-12-06] MEDS: CYCLOBENZAPRINE HCL 10 MG TABLET (FP) PO SCH ×3 (06:19→21:38)
[2017-12-06] MEDS: GABAPENTIN 100 MG CAPSULE (FP) PO SCH ×3 (06:19→21:38)
[2017-12-06] MEDS: LIDOCAINE 5% TOPICAL PATCH TP SCH (09:58)
[2017-12-06] MEDS: PRENATAL VITAMINS W/ FOLIC ACID TABLET (FP) PO SCH (09:59)
[2017-12-06] MEDS: NAPROXEN 500 MG TABLET (FP) PO SCH ×2 (10:33→21:38)
[2017-12-06] MEDS: traZODone HCL 50 MG TABLET (FP) PO SCH (21:38)
[2017-12-06] MEDS: AMITRIPTYLINE HCL 25 MG TABLET (FP) PO SCH (21:38)
[2017-12-06] MEDS: THIAMINE HCL 100 MG TABLET (FP) PO SCH (21:39)
[2017-12-06] MEDS: LIDOCAINE PATCH REMOVAL MC SCH (21:43)
[2017-12-07] MEDS: CYCLOBENZAPRINE HCL 10 MG TABLET (FP) PO SCH ×2 (06:26→16:24)
[2017-12-07] MEDS: GABAPENTIN 100 MG CAPSULE (FP) PO SCH ×2 (06:26→16:24)
[2017-12-07] MEDS: PRENATAL VITAMINS W/ FOLIC ACID TABLET (FP) PO SCH (09:50)
[2017-12-07] MEDS: NAPROXEN 500 MG TABLET (FP) PO SCH ×2 (09:50→21:32)
[2017-12-07] MEDS: LIDOCAINE 5% TOPICAL PATCH TP SCH (09:51)
--- NOTE | 2017-12-07 14:22 | PN ---
S Progress Note (SOAP) Subjective: C/O POSSIBLE SEIZUre has had in past while sleeping in bed, unable to tolerate all seizure meds, started on nuerontin for back pain which appears to be tolerted pain controlled Objective: 12/07/17 14:21 Vital Signs - 24 hr 12/07/17 12/07/17 12/07/17 00:30 03:30 07:03 Temperature 97.4 F L Pulse Rate 92 H Respiratory 18 18 20 Rate Blood Pressure 116/78 labs reviewed Assessment: 12/07/17 14:21 epilepsy - not on meds, will increase neurontin as tolerted, d/c elavil becaue of possible lowering of seziure threshold and lower trazadone dose for same reson, will moniotr, no fall or head injury reported.
[2017-12-07] MEDS: GABAPENTIN 300 MG CAPSULE (FP) PO SCH (21:32)
[2017-12-07] MEDS: THIAMINE HCL 100 MG TABLET (FP) PO SCH (21:32)
[2017-12-07] MEDS: CYCLOBENZAPRINE HCL 5 MG TABLET PO SCH (21:32)
[2017-12-07] MEDS: LIDOCAINE PATCH REMOVAL MC SCH (21:33)
[2017-12-07] MEDS: traZODone HCL 100 MG TABLET (FP) PO SCH (21:33)
[2017-12-08] MEDS: GABAPENTIN 300 MG CAPSULE (FP) PO SCH ×3 (06:28→21:36)
[2017-12-08] MEDS: CYCLOBENZAPRINE HCL 5 MG TABLET PO SCH ×3 (06:28→21:36)
[2017-12-08] MEDS: LOPERAMIDE HCL 2 MG CAPSULE PO PRN ×2 (06:28→11:16)
[2017-12-08] MEDS: NAPROXEN 500 MG TABLET (FP) PO SCH ×2 (09:42→21:36)
[2017-12-08] MEDS: PRENATAL VITAMINS W/ FOLIC ACID TABLET (FP) PO SCH (09:42)
[2017-12-08] MEDS: LIDOCAINE 5% TOPICAL PATCH TP SCH (09:46)
[2017-12-08] MEDS ORDERED: COLLOIDAL OATMEAL 1 BAR EACH TP PRN (17:12)
[2017-12-08] MEDS: traZODone HCL 100 MG TABLET (FP) PO SCH (21:36)
[2017-12-08] MEDS: THIAMINE HCL 100 MG TABLET (FP) PO SCH (21:36)
[2017-12-08] MEDS: LIDOCAINE PATCH REMOVAL MC SCH (21:37)
[2017-12-09] MEDS: GABAPENTIN 300 MG CAPSULE (FP) PO SCH ×3 (06:17→21:47)
[2017-12-09] MEDS: CYCLOBENZAPRINE HCL 5 MG TABLET PO SCH ×3 (06:17→21:47)
[2017-12-09] MEDS: LIDOCAINE 5% TOPICAL PATCH TP SCH (10:14)
[2017-12-09] MEDS: NAPROXEN 500 MG TABLET (FP) PO SCH ×2 (10:14→21:47)
[2017-12-09] MEDS: PRENATAL VITAMINS W/ FOLIC ACID TABLET (FP) PO SCH (10:14)
[2017-12-09] MEDS: THIAMINE HCL 100 MG TABLET (FP) PO SCH (21:47)
[2017-12-09] MEDS: traZODone HCL 100 MG TABLET (FP) PO SCH (21:47)
[2017-12-09] MEDS: LIDOCAINE PATCH REMOVAL MC SCH (21:48)
[2017-12-10] MEDS: GABAPENTIN 300 MG CAPSULE (FP) PO SCH ×3 (06:30→21:42)
[2017-12-10] MEDS: CYCLOBENZAPRINE HCL 5 MG TABLET PO SCH ×3 (06:30→21:42)
[2017-12-10] MEDS: NAPROXEN 500 MG TABLET (FP) PO SCH ×2 (09:39→21:42)
[2017-12-10] MEDS: PRENATAL VITAMINS W/ FOLIC ACID TABLET (FP) PO SCH (09:39)
[2017-12-10] MEDS: LIDOCAINE 5% TOPICAL PATCH TP SCH (09:39)
[2017-12-10] MEDS: THIAMINE HCL 100 MG TABLET (FP) PO SCH (21:41)
[2017-12-10] MEDS: LIDOCAINE PATCH REMOVAL MC SCH (21:42)
[2017-12-10] MEDS: traZODone HCL 100 MG TABLET (FP) PO SCH (21:42)
[2017-12-11] MEDS: GABAPENTIN 300 MG CAPSULE (FP) PO SCH ×3 (06:32→21:47)
[2017-12-11] MEDS: CYCLOBENZAPRINE HCL 5 MG TABLET PO SCH ×3 (06:32→21:47)
[2017-12-11] MEDS: NAPROXEN 500 MG TABLET (FP) PO SCH ×2 (10:25→21:47)
[2017-12-11] MEDS: LIDOCAINE 5% TOPICAL PATCH TP SCH (10:25)
[2017-12-11] MEDS: PRENATAL VITAMINS W/ FOLIC ACID TABLET (FP) PO SCH (10:25)
[2017-12-11] MEDS: THIAMINE HCL 100 MG TABLET (FP) PO SCH (21:47)
[2017-12-11] MEDS: traZODone HCL 100 MG TABLET (FP) PO SCH (21:47)
[2017-12-11] MEDS: LIDOCAINE PATCH REMOVAL MC SCH (21:48)
[2017-12-12] MEDS: GABAPENTIN 300 MG CAPSULE (FP) PO SCH ×3 (06:12→21:49)
[2017-12-12] MEDS: CYCLOBENZAPRINE HCL 5 MG TABLET PO SCH ×3 (06:12→21:49)
--- NOTE | 2017-12-12 09:11 | PN ---
[facility] Progress Note Note: swelling both legs,varicose veins in both legs,no calf tenderness no shortness of breath no calf tenderness spitting edema Vital Signs Temperature 97.3 F L 12/12/17 07:08 Pulse Rate 84 12/12/17 07:08 Respiratory Rate 20 12/12/17 07:08 Blood Pressure 147/95 12/12/17 07:08 O2 Sat by Pulse Oximetry (%) impression edema both legs treatment blood for cmp in am advise elevation of the legs lasix 40 mgs po daily for 3 days close monitoring
--- NOTE | 2017-12-12 09:40 | PN ---
[facility] Progress Note Note: pitting edema both legs with varicose veins as mentioned,lasix 40 mgs po now then daily for 3 days,elevation of legs,close monitoring
[2017-12-12] MEDS: NAPROXEN 500 MG TABLET (FP) PO SCH ×2 (10:34→21:49)
[2017-12-12] MEDS: PRENATAL VITAMINS W/ FOLIC ACID TABLET (FP) PO SCH (10:34)
[2017-12-12] MEDS: LIDOCAINE 5% TOPICAL PATCH TP SCH (10:35)
[2017-12-12 11:06] LABS: ALBUMIN 3.9 g/dl (3.4-5.0); ANION GAP 4 (8-16); BLOOD UREA NITROGEN 11 mg/dL (7-18); CALCIUM 8.4 mg/dL (8.5-10.1); CHLORIDE 105 mmol/L (98-107); CO2 32 mmol/L (21-32); CREATININE 0.9 mg/dL (0.7-1.3); GLUCOSE,RANDOM 117 mg/dL (74-106); POTASSIUM 4.3 mmol/L (3.5-5.1); SGOT/AST 22 U/L (15-37); SGPT/ALT 50 U/L (12-78); SODIUM 141 mmol/L (136-145); TOT PROT 6.4 g/dl (6.4-8.2)
[2017-12-12 11:08] LABS: ALK PHOS 46 U/L (45-117); BILIRUBIN,TOTAL 0.2 mg/dL (0.2-1.0)
[2017-12-12] MEDS: FUROSEMIDE 40 MG TABLET (FP) PO SCH (11:37)
[2017-12-12] MEDS: traZODone HCL 100 MG TABLET (FP) PO SCH (21:49)
[2017-12-12] MEDS: LIDOCAINE PATCH REMOVAL MC SCH (21:49)
[2017-12-12] MEDS: THIAMINE HCL 100 MG TABLET (FP) PO SCH (21:49)
[2017-12-13] MEDS: GABAPENTIN 300 MG CAPSULE (FP) PO SCH ×3 (06:47→21:55)
[2017-12-13] MEDS: CYCLOBENZAPRINE HCL 5 MG TABLET PO SCH ×3 (06:47→21:55)
[2017-12-13] MEDS: NAPROXEN 500 MG TABLET (FP) PO SCH ×2 (10:34→21:55)
[2017-12-13] MEDS: LIDOCAINE 5% TOPICAL PATCH TP SCH (10:34)
[2017-12-13] MEDS: FUROSEMIDE 40 MG TABLET (FP) PO SCH (10:34)
[2017-12-13] MEDS: PRENATAL VITAMINS W/ FOLIC ACID TABLET (FP) PO SCH (10:34)
[2017-12-13] MEDS: THIAMINE HCL 100 MG TABLET (FP) PO SCH (21:55)
[2017-12-13] MEDS: traZODone HCL 100 MG TABLET (FP) PO SCH (21:55)
[2017-12-13] MEDS: LIDOCAINE PATCH REMOVAL MC SCH (21:56)
[2017-12-14] MEDS: GABAPENTIN 300 MG CAPSULE (FP) PO SCH ×3 (06:33→21:43)
[2017-12-14] MEDS: CYCLOBENZAPRINE HCL 5 MG TABLET PO SCH ×3 (06:33→21:43)
[2017-12-14] MEDS: FUROSEMIDE 40 MG TABLET (FP) PO SCH (09:30)
[2017-12-14] MEDS: LIDOCAINE 5% TOPICAL PATCH TP SCH (09:30)
[2017-12-14] MEDS: PRENATAL VITAMINS W/ FOLIC ACID TABLET (FP) PO SCH (09:30)
[2017-12-14] MEDS: NAPROXEN 500 MG TABLET (FP) PO SCH ×2 (09:30→21:43)
[2017-12-14] MEDS: traZODone HCL 100 MG TABLET (FP) PO SCH (21:43)
[2017-12-14] MEDS: LIDOCAINE PATCH REMOVAL MC SCH (21:44)
[2017-12-14] MEDS: THIAMINE HCL 100 MG TABLET (FP) PO SCH (21:44)
[2017-12-15] MEDS: GABAPENTIN 300 MG CAPSULE (FP) PO SCH ×3 (06:00→21:50)
[2017-12-15] MEDS: CYCLOBENZAPRINE HCL 5 MG TABLET PO SCH ×3 (06:00→21:50)
[2017-12-15] MEDS: LIDOCAINE 5% TOPICAL PATCH TP SCH (10:35)
[2017-12-15] MEDS: NAPROXEN 500 MG TABLET (FP) PO SCH ×2 (10:35→21:50)
[2017-12-15] MEDS: PRENATAL VITAMINS W/ FOLIC ACID TABLET (FP) PO SCH (10:35)
[2017-12-15] MEDS: traZODone HCL 100 MG TABLET (FP) PO SCH (21:50)
[2017-12-15] MEDS: THIAMINE HCL 100 MG TABLET (FP) PO SCH (21:50)
[2017-12-15] MEDS: LIDOCAINE PATCH REMOVAL MC SCH (21:51)
[2017-12-16] MEDS: GABAPENTIN 300 MG CAPSULE (FP) PO SCH ×3 (06:26→21:32)
[2017-12-16] MEDS: CYCLOBENZAPRINE HCL 5 MG TABLET PO SCH ×3 (06:26→21:32)
[2017-12-16] MEDS: PRENATAL VITAMINS W/ FOLIC ACID TABLET (FP) PO SCH (10:30)
[2017-12-16] MEDS: LIDOCAINE 5% TOPICAL PATCH TP SCH (10:30)
[2017-12-16] MEDS: NAPROXEN 500 MG TABLET (FP) PO SCH ×2 (10:30→21:32)
[2017-12-16] MEDS: traZODone HCL 100 MG TABLET (FP) PO SCH (21:32)
[2017-12-16] MEDS: THIAMINE HCL 100 MG TABLET (FP) PO SCH (21:32)
[2017-12-16] MEDS: LIDOCAINE PATCH REMOVAL MC SCH (21:32)
[2017-12-17] MEDS: CYCLOBENZAPRINE HCL 5 MG TABLET PO SCH ×3 (06:27→21:35)
[2017-12-17] MEDS: GABAPENTIN 300 MG CAPSULE (FP) PO SCH ×3 (06:27→21:35)
[2017-12-17] MEDS: NAPROXEN 500 MG TABLET (FP) PO SCH ×2 (10:01→21:35)
[2017-12-17] MEDS: LIDOCAINE 5% TOPICAL PATCH TP SCH (10:01)
[2017-12-17] MEDS: PRENATAL VITAMINS W/ FOLIC ACID TABLET (FP) PO SCH (10:01)
[2017-12-17] MEDS: traZODone HCL 100 MG TABLET (FP) PO SCH (21:35)
[2017-12-17] MEDS: THIAMINE HCL 100 MG TABLET (FP) PO SCH (21:35)
[2017-12-17] MEDS: LIDOCAINE PATCH REMOVAL MC SCH (21:36)
[2017-12-18] MEDS: GABAPENTIN 300 MG CAPSULE (FP) PO SCH ×3 (05:59→21:51)
[2017-12-18] MEDS: CYCLOBENZAPRINE HCL 5 MG TABLET PO SCH ×3 (05:59→21:51)
[2017-12-18] MEDS: LIDOCAINE 5% TOPICAL PATCH TP SCH (10:29)
[2017-12-18] MEDS: NAPROXEN 500 MG TABLET (FP) PO SCH ×2 (10:29→21:51)
[2017-12-18] MEDS: PRENATAL VITAMINS W/ FOLIC ACID TABLET (FP) PO SCH (10:29)
[2017-12-18] MEDS: traZODone HCL 100 MG TABLET (FP) PO SCH (21:51)
[2017-12-18] MEDS: THIAMINE HCL 100 MG TABLET (FP) PO SCH (21:51)
[2017-12-18] MEDS: hydrOXYzine PAMOATE 50 MG CAPSULE (FP) PO PRN (21:53)
[2017-12-18] MEDS: LIDOCAINE PATCH REMOVAL MC SCH (21:53)
[2017-12-19] MEDS: GABAPENTIN 300 MG CAPSULE (FP) PO SCH ×3 (06:20→21:17)
[2017-12-19] MEDS: CYCLOBENZAPRINE HCL 5 MG TABLET PO SCH ×3 (06:20→21:17)
[2017-12-19] MEDS: PRENATAL VITAMINS W/ FOLIC ACID TABLET (FP) PO SCH (10:08)
[2017-12-19] MEDS: NAPROXEN 500 MG TABLET (FP) PO SCH ×2 (10:08→21:17)
[2017-12-19] MEDS: LIDOCAINE 5% TOPICAL PATCH TP SCH (10:08)
[2017-12-19] MEDS: traZODone HCL 100 MG TABLET (FP) PO SCH (21:17)
[2017-12-19] MEDS: THIAMINE HCL 100 MG TABLET (FP) PO SCH (21:17)
[2017-12-19] MEDS: hydrOXYzine PAMOATE 50 MG CAPSULE (FP) PO PRN (21:18)
[2017-12-19] MEDS: LIDOCAINE PATCH REMOVAL MC SCH (22:04)
[2017-12-20 06:49] VITALS: BP 143/87; PULSE 83; TEMP 97.4
[2017-12-20] MEDS: GABAPENTIN 300 MG CAPSULE (FP) PO SCH (07:03)
[2017-12-20] MEDS: CYCLOBENZAPRINE HCL 5 MG TABLET PO SCH (07:03)
--- NOTE | 2017-12-20 09:40 | PN ---
Psychiatric Progress Note Vital Signs: Vital Signs Period Temp Pulse Resp BP Sys/Montilla Pulse Ox Last 24 Hr 97.4 F 83-105 18-18 134-143/85-87 Date of Session: 12/20/17 Chief Complaint:: discharge visit HPI: Patient has addressed alcohol dependence comrobid MDD, PTSD. ROS: arthritis, pancreatitis, h/o bells palsy on left side seizure medically managed. Current Medications: Active Medications Generic Name Dose Route Start Last Admin Trade Name Freq PRN Reason Stop Dose Admin Acetaminophen 650 mg 11/28/17 18:00 Tylenol - PO Q4H PRN FEVER Al Hydroxide/Mg Hydroxide 30 ml 11/28/17 18:00 Mylanta Oral Suspension - PO Q6H PRN DYSPEPSIA Colloidal Oatmeal 1 applic 12/08/17 17:12 12/08/17 23:33 Aveeno Soap - TP 1 applic DAILY PRN Administration HYGEINE Cyclobenzaprine HCl 5 mg 12/07/17 14:16 12/20/17 07:03 Cyclobenzaprine Hcl PO 5 mg TID TAMAR Administration Eucalyptus/Menthol/Phenol/Sorbitol 1 each 11/28/17 18:00 Cepastat Lozenge - MM Q4H PRN SORE THROAT Gabapentin 300 mg 12/07/17 14:15 12/20/17 07:03 Neurontin - PO 300 mg TID TAMAR Administration Guaifenesin 10 ml 11/28/17 18:00 Robitussin Dm - PO Q6H PRN COUGH Hydroxyzine Pamoate 50 mg 11/28/17 18:00 12/19/17 21:18 Vistaril - PO 50 mg Q4H PRN Administration AGITATION Lidocaine 1 patch 12/03/17 17:15 12/19/17 10:08 Lidoderm Patch - TP 1 patch DAILY TAMAR Administration Loperamide HCl 4 mg 11/28/17 18:00 12/08/17 11:16 Imodium - PO 4 mg Q6H PRN Administration DIARRHEA Magnesium Citrate 300 ml 11/28/17 18:00 Citroma - PO Q48H PRN CONSTIPATION Magnesium Hydroxide 30 ml 11/28/17 18:00 Milk Of Magnesia - PO DAILY PRN CONSTIPATION Miscellaneous 1 each 12/03/17 22:00 12/19/17 22:04 Lidoderm Patch Removal MC 1 each DAILY@2200 TAMAR Administration Naproxen 500 mg 11/29/17 22:00 12/19/17 21:17 Naprosyn - PO 500 mg BID TAMAR Administration Multivit/Folic Acid/Iron 1 tab 11/29/17 10:00 12/19/17 10:08 Vitamins (Sjr) - PO 1 tab DAILY TAMAR Administration Pseudoephedrine/Triprolidine 1 combo 11/28/17 18:00 Actifed - PO TID PRN NASAL CONGESTION Thiamine HCl 100 mg 11/28/17 22:00 12/19/17 21:17 Vitamin B1 - PO 100 mg HS TAMAR Administration Trazodone HCl 100 mg 12/07/17 22:00 12/19/17 21:17 Desyrel - PO 100 mg HS TAMAR Administration Current Side Effect: No Lab tests ordered: No Lab tests reviewed: Yes Provider note:: Patient has compelted today his treatment and met his goals, will continue to address his issues at [facility], he focused on importance of chaging attitude for the utilization of supports available to prevent relapses and understands the negative impacyt of his alcohol addiction on his major life areas. Trazodone well tolerated, scripts provided for 30 days supply, patient was encouraged to continue maintain abstinence he is stable for discharge today. Total face to face time:: 30 Mental Status Exam - Mental Status Exam Alert and Oriented to: Time, Place, Person Cognitive Function: Good Patient Appearance: Well Groomed Mood: Hopeful Affect: Appropriate, Mood Congruent Patient Behavior: Appropriate, Cooperative Speech Pattern: Clear, Appropriate Voice Loudness: Normal Thought Process: Intact, Goal Oriented Thought Disorder: Not Present Hallucinations: Denies Suicidal Ideation: Denies Homicidal Ideation: Denies Insight/Judgement: Fair Sleep: Fair Appetite: Fair Muscle strength/Tone: Normal Gait/Station: Normal Psychiatric Treatment Plan - Problem List (1) Alcohol dependence Current Visit: No (2) MDD (major depressive disorder) Current Visit: No Comment: History. (3) PTSD (post-traumatic stress disorder) Current Visit: No
[2017-12-20] MEDS: PRENATAL VITAMINS W/ FOLIC ACID TABLET (FP) PO SCH (09:47)
[2017-12-20] MEDS: NAPROXEN 500 MG TABLET (FP) PO SCH (09:47)
[2017-12-20] MEDS: LIDOCAINE 5% TOPICAL PATCH TP SCH (09:47)
== END 2017-12-20 11:10 | disposition home or self-care (01) | DRG 772 ==
LOC: YASAS 16:11 → Y5N 16:15
PROVIDERS: ADMIT Psychiatry & Neurology Psychiatry; ATTEND Psychiatry & Neurology Psychiatry
PROC: HZ42ZZZ Group Counseling for Substance Abuse Treatment, Cognitive-Behavioral (ICD-10-PCS; principal; 2017-11-28)
DX: F10.20 Alcohol dependence, uncomplicated (principal); F12.20 Cannabis dependence, uncomplicated; F19.24 Other psychoactive substance dependence with psychoactive substance-induced mood disorder; F33.9 Major depressive disorder, recurrent, unspecified; F43.10 Post-traumatic stress disorder, unspecified; I83.893 Varicose veins of bilateral lower extremities with other complications; R60.0 Localized edema; G40.909 Epilepsy, unspecified, not intractable, without status epilepticus; M54.40 Lumbago with sciatica, unspecified side; G89.29 Other chronic pain
CPT/HCPCS: 36415; 80053

== ENCOUNTER 2025-02-08 16:18 | Inpatient (IN) | payer OTHER ==
[2025-02-08 17:08] VITALS: BMI 35.4
[2025-02-08] MEDS ORDERED: BENZONATATE 200 MG CAPSULE PO PRN (17:56)
[2025-02-08] MEDS ORDERED: BENZOCAINE/MENTHOL (CHLORASEPTIC ) LOZENGE MM PRN (17:56)
[2025-02-08] MEDS ORDERED: NALOXONE (NARCAN) HCL 4 MG/0.1 ML SPRAY NS PRN (17:56)
[2025-02-08] MEDS ORDERED: LOPERAMIDE HCL 2 MG CAPSULE PO PRN (17:56)
[2025-02-08] MEDS ORDERED: IBUPROFEN 400 MG TABLET (FP) PO PRN (17:56)
[2025-02-08] MEDS ORDERED: MAGNESIUM HYDROX 2400MG/30ML ORAL SUSPENSION 30 ML CUP PO PRN (17:56)
[2025-02-08] MEDS ORDERED: guaiFENesin 600 MG TABLET.ER (FP) PO PRN (17:56)
[2025-02-08] MEDS ORDERED: ACETAMINOPHEN 325 MG TABLET (FP) PO PRN (17:56)
[2025-02-08] MEDS ORDERED: POLYETHYLENE GLYCOL (HEALTHYLAX) 3350 17 GM PACKET PO PRN (17:56)
[2025-02-08] MEDS: LACOSAMIDE 50 MG TABLET PO SCH (21:17)
[2025-02-08] MEDS: THIAMINE 100 MG TABLET PO SCH (21:17)
[2025-02-08] MEDS: MELATONIN 5 MG TABLETS PO SCH (21:18)
[2025-02-08] MEDS: TUBERCULIN PPD 5 TU/0.1ML SYRINGE (IN PATIENT USE ONLY) ID ONE (21:18)
[2025-02-09 08:02] LABS: PH,URINE 6.5 (5.0-8.0); URINE APPEARANCE CLEAR; URINE BILIRUBIN NEGATIVE (NEGATIVE); URINE COLOR YELLOW; URINE GLUCOSE (UA) NEGATIVE (NEGATIVE); URINE KETONE NEGATIVE (NEGATIVE); URINE LEUK ESTERASE NEGATIVE (NEGATIVE); URINE NITRITE NEGATIVE (NEGATIVE); URINE PROTEIN NEGATIVE (NEGATIVE); URINE UROBILINOGEN 0.2 mg/dL (0.2-1.0)
[2025-02-09] MEDS: PRENATAL VITAMINS W/ FOLIC ACID TABLET (FP) PO SCH (10:03)
[2025-02-09 11:36] LABS: CHLORIDE 107 mmol/L (98-107); POTASSIUM 4.1 mmol/L (3.5-5.1); SODIUM 146 mmol/L (136-145)
[2025-02-09 11:39] LABS: CALCIUM 9.1 mg/dL (8.5-10.1)
[2025-02-09 11:40] LABS: ALBUMIN 3.2 g/dl (3.4-5.0); ANION GAP 8 mmol/L (4-13); BLOOD UREA NITROGEN 11.1 mg/dL (7-18); CO2 31 mmol/L (21-32); GLUCOSE,RANDOM 91 mg/dL (74-106)
[2025-02-09 11:43] LABS: SGOT/AST 8 U/L (15-37); SGPT/ALT 22 U/L (13-61)
[2025-02-09 11:44] LABS: CREATININE 0.7 mg/dL (0.55-1.3)
[2025-02-09 11:45] LABS: BILIRUBIN,TOTAL 0.4 mg/dL (0.2-1); TOT PROT 5.8 g/dl (6.4-8.2)
[2025-02-09 11:46] LABS: ALK PHOS 66 U/L (45-117)
[2025-02-09 11:54] LABS: HEMATOCRIT 38.3 % (40.1-51.0); HEMOGLOBIN 12.2 g/dL (13.7-17.5); MCHC 31.9 g/dl (32.3-36.5); MEAN CELL VOLUME 90.8 fl (79.0-92.2); MEAN PLT VOLUME 9.7 fl (9.4-12.4); PLATELET COUNT 213 x10^3/uL (163-337); RDW 14.2 % (12.2-16.4)
[2025-02-09 12:04] LABS: SYPHILIS W/ RPR CONF NON-REACTIVE (NONREACTIVE)
[2025-02-09 13:55] LABS: HCV DIAGNOSTIC IN-HOUSE W/RFLX NON-REACTIVE (NONREACTIVE)
[2025-02-13] MEDS: NALTREXONE HCL 50 MG TABLET PO SCH (10:18)
[2025-02-14] MEDS: NALTREXONE HCL 50 MG TABLET PO SCH (09:43)
[2025-02-17] MEDS: IBUPROFEN 600 MG TABLET (FP) PO PRN (10:38)
[2025-02-22] MEDS: LIDOCAINE 5% TOPICAL PATCH TP SCH (15:44)
[2025-02-22] MEDS: LIDOCAINE PATCH REMOVAL MC SCH (21:02)
[2025-02-23] MEDS: DISULFIRAM 250 MG TABLET PO SCH (09:52)
[2025-02-23 11:52] LABS: INR 0.96 (0.83-1.09); PROTHROMBIN TIME (PATIENT) 10.6 SEC (9.7-13.0)
[2025-02-24] MEDS: hydrOXYzine PAMOATE 25 MG CAPSULE (FP) PO PRN (21:41)
[2025-02-26] MEDS: LACOSAMIDE 50 MG TABLET PO ONE (09:42)
[2025-02-26] MEDS: LACOSAMIDE 50 MG TABLET PO SCH (21:05)
[2025-03-04] MEDS: MAG HYDROX/AL HYDROX/SIMETH 30 ML UNIT-DOSE CUP PO PRN (09:00)
[2025-03-06] MEDS: amLODIPine BESYLATE 2.5 MG TABLET (FP) PO SCH (10:46)
[2025-03-06] MEDS: GABAPENTIN 100 MG CAPSULE PO SCH (13:20)
[2025-03-07] MEDS: NALTREXONE MICROSPHERES (VIVITROL) 380 MG DISP.SYRIN IM ONE (10:23)
[2025-03-08 06:32] VITALS: RESP 17; TEMP 96.1
[2025-03-08 08:49] VITALS: BP 156/94; PULSE 91
== END 2025-03-08 09:55 | disposition home or self-care (01) | DRG 772 ==
LOC: YASAS 16:18 → Y3E 18:31
PROVIDERS: ADMIT Psychiatry & Neurology Pain Medicine; ATTEND Psychiatry & Neurology Pain Medicine
PROC: HZ42ZZZ Group Counseling for Substance Abuse Treatment, Cognitive-Behavioral (ICD-10-PCS; principal; 2025-02-08)
DX: F10.20 Alcohol dependence, uncomplicated (principal); F12.20 Cannabis dependence, uncomplicated; F19.24 Other psychoactive substance dependence with psychoactive substance-induced mood disorder; F43.10 Post-traumatic stress disorder, unspecified; F41.8 Other specified anxiety disorders; F32.A Depression, unspecified; G40.909 Epilepsy, unspecified, not intractable, without status epilepticus; I10 Essential (primary) hypertension; M54.40 Lumbago with sciatica, unspecified side; G89.29 Other chronic pain; Z91.81 History of falling; Z99.89 Dependence on other enabling machines and devices
CPT/HCPCS: 36415; 73610-TC-LT-FY; 73630-TC-LT; 80053; 80305; 80307; 81003; 82140; 82272; 82652; 83735; 83993; 85027; 85610; 86780; 86803; 87811; 93005; 93010; J2315